=== PATIENT | female | born 1965 | race Caucasian/White ===

== ENCOUNTER 2020-04-26 01:10 | Emergency (ER) | payer SELFPAY ==
[2020-04-26 01:31] LABS: #Basophils 0.1 thou/uL (0.0-0.2); #Lymphocytes 2.8 thou/uL (1.20-3.40); #Monocytes 0.7 thou/uL (0.11-0.59); #Neutrophils 9.5 thou/uL (1.40-6.50); %Basophils 0.5 % (0.0-1.0); %Eosinophils 0.2 % (0.0-10.0); %Lymphocytes 21.4 % (21.0-51.0); %Monocytes 5.4 % (0.0-10.0); %Neutrophils 72.6 % (42.0-75.0); Hemoglobin 11.9 g/dL (12.0-16.0); Mean Corpuscular HGB CONC 33.8 g/dL (32.0-36.0); Mean Corpuscular Hemoglobin 33.8 pg (27.0-31.0); Mean Corpuscular Volume 99.9 fL (78.0-98.0); Mean Platelet Volume 5.2 fL (7.4-10.4); Platelet Count 390 thou/uL (130-400); RBC Distribution Width 12.3 % (11.5-14.5); Red Blood Cell (RBC) Count 3.51 mill/uL (4.20-5.40); White Blood Cell (WBC) Count 13.1 thou/uL (4.8-10.8)
[2020-04-26 01:48] LABS: ALT (SGPT) 38 U/L (8-55); AST (SGOT) 24 U/L (5-34); Albumin 3.1 g/dL (3.5-5.0); Alkaline Phosphatase 182 U/L (40-110); Anion Gap 18 mmol/L (10-20); BUN (Urea Nitrogen) 18 mg/dL (9.8-20.1); Bilirubin, Total 0.2 mg/dL (0.2-1.2); Calc. Creatinine Clearance 0 mL/min (70-130); Calcium 8.7 mg/dL (7.8-10.44); Carbon Dioxide 22 mmol/L (22-29); Chloride 90 mmol/L (98-107); Globulin 3.8 g/dL (2.4-3.5); Potassium 4.2 mmol/L (3.5-5.1); Protein, Total 6.9 g/dL (6.0-8.3); Sodium 126 mmol/L (136-145)
[2020-04-26 01:54] LABS: Glucose 705 mg/dL (70-105)
[2020-04-26] MEDS ORDERED: Insulin Regular 300 UNITS/3 ML VIAL ONE (01:58)
[2020-04-26] MEDS ORDERED: Cefepime 1 GM VIAL ONE (01:58)
[2020-04-26] MEDS ORDERED: Vancomycin HCl 750 MG VIAL ONE (01:58)
[2020-04-26] MEDS ORDERED: Sodium Chloride 0.9% 250 ML 250 ML ONE (02:00)
[2020-04-26] MEDS ORDERED: Sodium Chloride 0.9% 100 ML ONE (02:00)
[2020-04-26] MEDS ORDERED: Sodium Chloride 0.9% 1,000 ML ONE (02:03)
== END 2020-04-26 02:30 | disposition left against medical advice (07) ==
LOC: NAV ERS 01:10
DX: E11.65 Type 2 diabetes mellitus with hyperglycemia (principal); F17.210 Nicotine dependence, cigarettes, uncomplicated; Z79.84 Long term (current) use of oral hypoglycemic drugs
CPT/HCPCS: 36415; 36416; 80053; 82010; 83605; 85025; 87040; 99284; J0692; J1815; J3370; J3490; J7050

== ENCOUNTER 2020-04-28 22:34 | Emergency (ER) | payer SELFPAY ==
[2020-04-28] MEDS ORDERED: Sodium Chloride 0.9% 100 ML ONE (23:25)
[2020-04-28] MEDS ORDERED: Cefepime 1 GM VIAL ONE (23:25)
[2020-04-28] MEDS ORDERED: Sodium Chloride 0.9% 1,000 ML ONE (23:25)
[2020-04-28] MEDS ORDERED: Ondansetron PF 4 MG/2 ML Vial ONE (23:26)
[2020-04-28] MEDS ORDERED: Morphine 2 MG/ML SYRINGE ONE (23:26)
[2020-04-28] MEDS ORDERED: Insulin Regular 300 UNITS/3 ML VIAL ONE (23:30)
[2020-04-28 23:33] LABS: ALT (SGPT) 30 U/L (8-55); AST (SGOT) 21 U/L (5-34); Alkaline Phosphatase 171 U/L (40-110); Anion Gap 20 mmol/L (10-20); BUN (Urea Nitrogen) 13 mg/dL (9.8-20.1); Bilirubin, Total 0.3 mg/dL (0.2-1.2); CK (CPK) 10 U/L (29-168); Calc. Creatinine Clearance 0 mL/min (70-130); Calcium 8.9 mg/dL (7.8-10.44); Carbon Dioxide 26 mmol/L (22-29); Chloride 93 mmol/L (98-107); Globulin 4.1 g/dL (2.4-3.5); Glucose 373 mg/dL (70-105); Potassium 3.9 mmol/L (3.5-5.1); Protein, Total 7.1 g/dL (6.0-8.3); Sodium 135 mmol/L (136-145)
[2020-04-28] MEDS ORDERED: Sodium Chloride 0.9% 250 ML 250 ML ONE (23:33)
[2020-04-28] MEDS ORDERED: Vancomycin HCl 750 MG VIAL ONE (23:33)
[2020-04-28 23:34] LABS: Band 16 % (5-11); Eosinophils 2 % (0-10); Hemoglobin 12.3 g/dL (12.0-16.0); Lymphocytes 23 % (21-51); MDiff Complete? YES; Mean Corpuscular HGB CONC 34.7 g/dL (32.0-36.0); Mean Corpuscular Hemoglobin 33.7 pg (27.0-31.0); Mean Platelet Volume 5.1 fL (7.4-10.4); Monocytes 5 % (0-10); Neutrophil 54 % (42-75); Platelet Count 415 thou/uL (130-400); Platelet Morphology Comment Appears Adequate; RBC Distribution Width 11.8 % (11.5-14.5); RBC Morphology Normal; Red Blood Cell (RBC) Count 3.66 mill/uL (4.20-5.40); White Blood Cell (WBC) Count 21.6 thou/uL (4.8-10.8)
== END 2020-04-29 01:20 | disposition short-term general hospital (02) ==
LOC: NAV ERS 22:34
DX: A41.9 Sepsis, unspecified organism (principal); L03.113 Cellulitis of right upper limb; E11.9 Type 2 diabetes mellitus without complications; Z87.891 Personal history of nicotine dependence; Z79.84 Long term (current) use of oral hypoglycemic drugs
CPT/HCPCS: 36415; 80053; 82550; 83605; 85025; 87040; J0692; J1815; J2270; J2405; J3370; J3490; J7050

== ENCOUNTER 2020-07-13 16:04 | Emergency (ER) | payer MEDICARE, OTHER ==
[2020-07-13] MEDS ORDERED: Sodium Chloride 0.9% 250 ML 250 ML ONE (16:50)
[2020-07-13] MEDS ORDERED: Sodium Chloride 0.9% 500 ML ONE (16:50)
[2020-07-13 16:56] LABS: #Basophils 0.1 thou/uL (0.0-0.2); #Lymphocytes 2.9 thou/uL (1.20-3.40); #Monocytes 0.6 thou/uL (0.11-0.59); #Neutrophils 5.9 thou/uL (1.40-6.50); %Basophils 0.8 % (0.0-1.0); %Eosinophils 0.1 % (0.0-10.0); %Lymphocytes 30.9 % (21.0-51.0); %Monocytes 5.9 % (0.0-10.0); %Neutrophils 62.3 % (42.0-75.0); Hemoglobin 13.9 g/dL (12.0-16.0); Mean Corpuscular Hemoglobin 31.4 pg (27.0-31.0); Mean Corpuscular Volume 95.1 fL (78.0-98.0); Mean Platelet Volume 5.9 fL (7.4-10.4); Platelet Count 414 thou/uL (130-400); RBC Distribution Width 10.8 % (11.5-14.5); Red Blood Cell (RBC) Count 4.44 mill/uL (4.20-5.40); White Blood Cell (WBC) Count 9.5 thou/uL (4.8-10.8)
[2020-07-13] MEDS ORDERED: Ondansetron PF 4 MG/2 ML Vial ONE (16:59)
[2020-07-13 17:22] LABS: Bilirubin Negative (Negative); Blood, Urine Trace (Negative); Clarity Clear (Clear); Glucose, Urine (Dipstick) 500 mg/dL (Negative); Ketone, Urine > or equal to 80 mg/dL (Negative); Leukocyte Negative (Negative); Nitrite Negative (Negative); Protein, Urine (Dipstick) Negative (Neg-Trace); Specific Gravity, Urine 1.015 (1.005-1.030); Urobilinogen 0.2 mg/dL (Less than 2)
[2020-07-13 17:28] LABS: RBC/HPF 0-3 HPF (0-3); Squamous Epithelial 0-3 HPF (0-3); Transitional Epithelial 0-3 HPF (None Seen); WBC/HPF 0-3 HPF (0-3)
[2020-07-13 17:31] LABS: ALT (SGPT) 17 U/L (8-55); AST (SGOT) 10 U/L (5-34); Albumin 3.5 g/dL (3.5-5.0); Alkaline Phosphatase 127 U/L (40-110); Anion Gap 25 mmol/L (10-20); BUN (Urea Nitrogen) 14 mg/dL (9.8-20.1); Bilirubin, Total 0.2 mg/dL (0.2-1.2); Calc. Creatinine Clearance 0 mL/min (70-130); Calcium 9.4 mg/dL (7.8-10.44); Carbon Dioxide 21 mmol/L (22-29); Chloride 90 mmol/L (98-107); Globulin 4.4 g/dL (2.4-3.5); Glucose 426 mg/dL (70-105); Lipase 107 U/L (8-78); Protein, Total 7.9 g/dL (6.0-8.3); Sodium 131 mmol/L (136-145)
[2020-07-13 17:38] LABS: Magnesium 1.6 mg/dL (1.6-2.6)
== END 2020-07-13 19:58 | disposition short-term general hospital (02) ==
LOC: NAV ERS 16:04
DX: K59.00 Constipation, unspecified (principal); E86.0 Dehydration; R14.0 Abdominal distension (gaseous); F17.200 Nicotine dependence, unspecified, uncomplicated; Z79.899 Other long term (current) drug therapy; Z85.038 Personal history of other malignant neoplasm of large intestine
CPT/HCPCS: 36416; 71045; 74176; 80053; 81003; 81015; 82010; 83605; 83690; 83735; 84484; 85025; 93005; 94760; 96374; J2405; J7030; J7050

== ENCOUNTER 2020-11-02 18:53 | Emergency (ER) | payer MEDICARE, OTHER ==
[2020-11-02] MEDS ORDERED: Ondansetron PF 4 MG/2 ML Vial ONE (19:17)
[2020-11-02 19:34] LABS: #Basophils 0.1 thou/uL (0.0-0.2); #Lymphocytes 3.1 thou/uL (1.20-3.40); #Monocytes 0.6 thou/uL (0.11-0.59); #Neutrophils 9.8 thou/uL (1.40-6.50); %Basophils 0.7 % (0.0-1.0); %Eosinophils 0.2 % (0.0-10.0); %Lymphocytes 22.6 % (21.0-51.0); %Monocytes 4.2 % (0.0-10.0); %Neutrophils 72.3 % (42.0-75.0); Hemoglobin 14.3 g/dL (12.0-16.0); Mean Corpuscular HGB CONC 32.7 g/dL (32.0-36.0); Mean Corpuscular Volume 97.9 fL (78.0-98.0); Mean Platelet Volume 5.8 fL (7.4-10.4); Platelet Count 368 thou/uL (130-400); RBC Distribution Width 11.2 % (11.5-14.5); Red Blood Cell (RBC) Count 4.48 mill/uL (4.20-5.40); White Blood Cell (WBC) Count 13.6 thou/uL (4.8-10.8)
[2020-11-02 19:56] LABS: ALT (SGPT) 15 U/L (8-55); AST (SGOT) 14 U/L (5-34); Albumin 3.5 g/dL (3.5-5.0); Alkaline Phosphatase 80 U/L (40-110); Anion Gap 18 mmol/L (10-20); BUN (Urea Nitrogen) 9 mg/dL (9.8-20.1); Bilirubin, Total 0.4 mg/dL (0.2-1.2); Calc. Creatinine Clearance 0 mL/min (70-130); Calcium 8.8 mg/dL (7.8-10.44); Carbon Dioxide 23 mmol/L (22-29); Chloride 99 mmol/L (98-107); Globulin 3.9 g/dL (2.4-3.5); Glucose 410 mg/dL (70-105); Lipase 10 U/L (8-78); Potassium 4.1 mmol/L (3.5-5.1); Protein, Total 7.4 g/dL (6.0-8.3); Sodium 136 mmol/L (136-145)
[2020-11-02] MEDS ORDERED: Lantus 1000 UNITS/10 ML VIAL SC SCH (20:30)
== END 2020-11-02 21:41 | disposition home or self-care (01) ==
LOC: NAV ERS 18:53
DX: E46 Unspecified protein-calorie malnutrition (principal); E11.8 Type 2 diabetes mellitus with unspecified complications; F17.200 Nicotine dependence, unspecified, uncomplicated; Z79.4 Long term (current) use of insulin
CPT/HCPCS: 80053; 83690; 85025; 93005; 96374; J1815; J2405